=== PATIENT | male | born 1940 | race Caucasian/White ===

== ENCOUNTER → 2017-04-04 | Outpatient (CLI) | payer BC | LOC: CIMAGING 14:23 | PROVIDERS: ATTEND Family Medicine | DX: R06.02 Shortness of breath (principal); M19.011 Primary osteoarthritis, right shoulder; M51.9 Unspecified thoracic, thoracolumbar and lumbosacral intervertebral disc disorder | CPT/HCPCS: 71020-PO ==

== ENCOUNTER → 2018-02-07 | Outpatient (CLI) | payer BC | LOC: CIMAGING 11:22 | PROVIDERS: ATTEND Family Medicine | DX: R05 Cough (principal); D72.829 Elevated white blood cell count, unspecified | CPT/HCPCS: 71046-PO ==

== ENCOUNTER 2018-02-08 14:14 | Emergency (ER) | payer BC ==
--- NOTE | 2018-02-08 14:54 | EDPHY ---
H & P Stated Complaint: sent from [facility] for muscle pain and High WBC Time Seen by Provider: 02/08/18 14:19 HPI/ROS: Chief Complaint: Myalgias, high white blood count. HPI: 77-year-old male is being sent in from his primary care physician's office for further evaluation of a high white blood cell count and myalgias. The patient states that for the last 2 weeks he has been having myalgias primarily in his big muscle groups, low-grade fever from 100 to 100.5, and rare chills. He has been seen by his primary care physician, Dr. Burt. They have performed an extensive evaluation including CBC which showed a white blood cell count to 14 the 15. Chest x-ray is been negative. Urinalysis is negative. He has had no rashes. He did go camping about 4 weeks ago but does not recall any tick or insect bites. No other known exposures. No new medicines. His primary care physician has put him on 2 different courses of antibiotics, the last being started 3 days ago. He does not remember names of the antibiotics. He has a chronic nonproductive cough. No numbness or weakness. No headache. Some mild nasal congestion. No nausea vomiting or diarrhea. No abdominal pain. His current medications include edoxaban, pravastatin and a beta keli for atrial fibrillation. ROS: 10 systems were reviewed and were negative except those elements noted in the HPI. PMH: Coronary artery disease status post CABG 7 years ago, atrial fibrillation , neuropathy, BPH Medications: edoxaban, pravastatin, metoprolol Social History: No smoking, no alcohol, no recreational drug use Family History: non-contributory Physical Exam: Gen: Awake, Alert, No Distress HEENT: Nose: no rhinorrhea Eyes: PERRLA, EOMI Mouth: Moist mucosa Neck: Supple, no JVD Chest: nontender, lungs clear to auscultation Heart: S1, S2 normal, no murmur Abd: Soft, non-tender, no guarding Back: no CVA tenderness, no midline tenderness Ext: no edema, non-tender Skin: no rash Neuro: CN II-XII intact, Sensation grossly intact, Strength 5/5 in bilateral upper and lower extremities - Personal History Current Tetanus Diphtheria and Acellular Pertussis (TDAP): Yes - Medical/Surgical History Hx Asthma: No Hx Chronic Respiratory Disease: No Hx Diabetes: No Hx Cardiac Disease: Yes Hx Cirrhosis: No Hx Alcoholism: No Hx HIV/AIDS: No Hx Splenectomy or Spleen Trauma: No Other PMH: CABGX3/ 3 Heart Ablasions/ Lt Achilles tendon - Social History Smoking Status: Never smoked Constitutional: Initial Vital Signs Temperature (C) 37 C 02/08/18 14:33 Heart Rate 84 02/08/18 14:33 Respiratory Rate 18 02/08/18 14:33 Blood Pressure 149/86 H 02/08/18 14:33 O2 Sat (%) 93 02/08/18 14:33 O2 Delivery Mode Room Air Allergies/Adverse Reactions: No Known Allergies Allergy (Unverified 02/08/18 14:39) Home Medications: Medication Instructions Recorded Edoxaban Tosylate [Savaysa] 02/08/18 Fluticasone Furoate 02/08/18 Metoprolol Succinate 02/08/18 Pravastatin Sodium 02/08/18 Testosterone 02/08/18 Medical Decision Making ED Course/Re-evaluation: 77-year-old male referred to the emergency department by his primary care physician for myalgias and leukocytosis of unknown origin. I have reviewed his laboratory evaluations. Does indeed have an elevated white blood cell count with a left shift. I do not see any results of cultures or any viral serology results. His chest x-ray is negative. Think the most appropriate course of action will be to discuss with primary care physician no specific concerns and possibly consultation with Infectious Disease. I need to get information from primary care physician's office regarding the antibiotics the patient has been on recently. I have discussed with the PA on for Dr. Burt. His physician is not in the office today but they were concerned that his symptoms are not improving in his white count is increasing so they sent him here for further evaluation. She confirms that he was on azithromycin for possible respiratory infection and then was placed on Augmentin 2 days ago for or right otitis media and sore throat. Case discussed with Dr. Araya, infectious Disease. She is recommending that the antibiotics be stopped at this time. Symptoms consistent with a likely viral source. She is recommending CMV, EBV, blood cultures, repeat chemistry and LFTs. She feels that the primary care physician can follow up on these next week. The patient is well-appearing and is afebrile in the emergency department. She is happy to see the patient consultation for any concerns. Departure - Departure Disposition: Home, Routine, Self-Care Clinical Impression: Myalgia, Leukocytosis Condition: Good Instructions: Musculoskeletal Pain (ED), Leukocytosis (ED) Additional Instructions: Follow up with primary care physician on Sunday. Return to the emergency department for high fevers, worsening pain, chest pain, shortness of breath, rash, lightheadedness, fainting, or any other concerns. Referrals: Andreia Burt [Primary Care Provider] - As per Instructions
[2018-02-08 16:18] VITALS: BP 122/62
[2018-02-08 17:21] LABS: PLATELET COUNT 409 10^3/uL (150-400)
== END 2018-02-08 16:17 | disposition home or self-care (01) ==
LOC: CED 14:14
DX: M79.1 Myalgia (principal); D72.829 Elevated white blood cell count, unspecified
CPT/HCPCS: 86644-90; 86645-90; 86663-90

== ENCOUNTER 2018-11-05 06:16 | Day surgery (SDC) | payer BC | END 2018-11-05 13:22 | disposition home or self-care (01) | LOC: FCATH 06:16 ==